=== PATIENT | male | born 1990 | race Caucasian/White ===

== ENCOUNTER 2019-04-15 03:00 | Emergency (ER) | payer BC ==
[2019-04-15] MEDS ORDERED: ZOFRAN IV ONE (03:51)
[2019-04-15] MEDS ORDERED: NACL 0.9% 1000 ML 1,000 ML IV ONE ×2 (03:51→05:07)
[2019-04-15] MEDS ORDERED: MORPHINE IV ONE (03:51)
[2019-04-15 03:52] LABS: Basophils % (Auto) 0.2 % (0.0-1.8); Eosinophils % (Auto) 0.3 % (0.0-4.3); Hematocrit 47.5 % (35.5-45.6); Hemoglobin 16.5 gm/dl (11.8-15.2); Lymphocytes # (Auto) 1.7 K/mm3 (1.2-5.4); Mean Corpuscular HGB Conc 35 % (32-34); Mean Corpuscular Volume 89 fl (84-94); Monocytes # (Auto) 0.6 K/mm3 (0.0-0.8); Monocytes % (Auto) 5.6 % (0.0-7.3); Platelet Count 272 K/mm3 (140-440); Red Blood Count 5.35 M/mm3 (3.65-5.03); Red Cell Distribution Width 12.6 % (13.2-15.2)
[2019-04-15 04:03] LABS: Alanine Aminotransferase 24 units/L (7-56); Albumin 4.9 g/dL (3.9-5); BUN/Creatinine Ratio 13; Blood Urea Nitrogen 17 mg/dL (9-20); Calcium 9.3 mg/dL (8.4-10.2); Hemolysis Index 7
[2019-04-15] MEDS ORDERED: DILAUDID ONE (04:20)
[2019-04-15] MEDS ORDERED: DILAUDID IV ONE (04:20)
--- NOTE | 2019-04-15 04:52 | Cat Scan Report ---
CT ABDOMEN AND PELVIS WITH CONTRAST HISTORY: RLQ Abdominal pain, r/o appendicitis. COMPARISON: None. TECHNIQUE: CT images of the abdomen and pelvis were obtained following administration of intravenous contrast. All CT scans at this location are performed using CT dose reduction for ALARA by means of automated exposure control. CONTRAST: 100 ml of intravenous contrast administered. FINDINGS: Lungs/bones: Lung bases are clear. There is no acute osseous abnormality or significant DJD. Abdomen/pelvis: A few scattered punctate hypodensities are present in the liver which are technicall y indeterminate but statistically likely benign in the absence of any known malignancy. The liver, sp humera, pancreas, adrenals, left kidney, and proximal GI tract appear unremarkable. There is a 3 mm stone at the right-sided UVJ with mild hydronephrosis. There is also mild generalized right renal edema. The urinary bladder and prostate appear unremarkable with no pelvic free fluid and no acute colonic a bnormality. The appendix and terminal ileum appear normal. IMPRESSION: 1. 3 mm stone at the right UVJ with mild hydronephrosis. 2. Additional incidental findings as above. Signer Name: Aguila Cedeño MD Signed: 04/15/2019 4:47 AM Workstation Name: [id number]
[2019-04-15] MEDS ORDERED: TORADOL IV ONE (05:07)
[2019-04-15] MEDS ORDERED: FLOMAX PO ONE (05:27)
--- NOTE | 2019-04-15 05:51 | Emergency Department Report ---
ED Abdominal Pain HPI - General Chief Complaint: Abdominal Pain Stated Complaint: EMESIS/ABD PAIN Time Seen by Provider: 04/15/19 03:40 Source: patient Mode of arrival: Ambulatory Limitations: No Limitations - History of Present Illness Initial Comments: Patient is a 28-year-old white male with no past medical history presents to the ED with complaint of acute onset assistance of a red lump in the tragus of the right lower quadrant area with intermittent nausea and vomiting and diarrhea for the last 1 week. Patient states that that lower quadrant pain got worse about 6 hours ago with intractable nausea and vomiting. Patient denies fever, chills, dysuria, urinary frequency and urgency, hematuria, dizziness, low back pain, penile discharge, cough, shortness of breath, chest pain, hematochezia, or heavy lifting. MD Complaint: abdominal pain (RLQ pain), flank pain (right flank), other (Nausea and vomiting; diarrhea) -: Gradual, week(s) (1) Location: RLQ, R flank Radiation: RLQ, R flank Migration to: RLQ, R flank Severity: moderate Severity scale (0 -10): 6 Quality: cramping, aching, sharp Consistency: intermittent Improves With: nothing Worsens With: nothing Associated Symptoms: denies other symptoms, nausea, vomiting, diarrhea. denies: fever, chills, constipation, dysuria, melena, hematuria, anorexia, syncope - Related Data Previous Rx's Medication Instructions Recorded Last Taken Type Ciprofloxacin HCl [Ciprofloxacin 500 mg PO Q12HR #20 tab 04/15/19 Unknown Rx TAB] Ketorolac [Toradol] 10 mg PO Q8H PRN #20 tablet 04/15/19 Unknown Rx Ondansetron [Zofran Odt] 4 mg PO Q8HR #20 tab.rapdis 04/15/19 Unknown Rx Tamsulosin [Flomax] 0.4 mg PO QDAY #7 cap 04/15/19 Unknown Rx traMADol [Ultram] 50 mg PO Q8HR PRN #15 tablet 04/15/19 Unknown Rx Allergies Allergy/AdvReac Type Severity Reaction Status Date / Time No Known Allergies Allergy Unverified 04/15/19 03:26 ED Review of Systems ROS: Stated complaint: EMESIS/ABD PAIN Other details as noted in HPI Constitutional: denies: chills, fever Eyes: denies: eye pain, eye discharge, vision change ENT: denies: ear pain, throat pain Respiratory: denies: cough, shortness of breath, wheezing Cardiovascular: denies: chest pain, palpitations Endocrine: no symptoms reported Gastrointestinal: abdominal pain (right flank pain; RLQ pain), nausea, vomiting, diarrhea Genitourinary: denies: urgency, dysuria Musculoskeletal: denies: back pain, joint swelling, arthralgia Skin: denies: rash, lesions Neurological: denies: headache, weakness, paresthesias Psychiatric: denies: anxiety, depression Hematological/Lymphatic: denies: easy bleeding, easy bruising ED Past Medical Hx - Past Medical History Previous Medical History?: No - Surgical History Past Surgical History?: No - Social History Smoking Status: Never Smoker Substance Use Type: None - Medications Home Medications: Home Medications Medication Instructions Recorded Confirmed Last Taken Type Ciprofloxacin HCl [Ciprofloxacin 500 mg PO Q12HR #20 tab 04/15/19 Unknown Rx TAB] Ketorolac [Toradol] 10 mg PO Q8H PRN #20 tablet 04/15/19 Unknown Rx Ondansetron [Zofran Odt] 4 mg PO Q8HR #20 tab.rapdis 04/15/19 Unknown Rx Tamsulosin [Flomax] 0.4 mg PO QDAY #7 cap 04/15/19 Unknown Rx traMADol [Ultram] 50 mg PO Q8HR PRN #15 tablet 04/15/19 Unknown Rx ED Physical Exam - General Limitations: No Limitations General appearance: alert, in no apparent distress - Head Head exam: Present: atraumatic, normocephalic, normal inspection - Eye Eye exam: Present: normal appearance, PERRL, EOMI. Absent: scleral icterus, conjunctival injection Pupils: Present: normal accommodation - ENT ENT exam: Present: normal exam, normal orophraynx, mucous membranes moist, TM's normal bilaterally, normal external ear exam - Neck Neck exam: Present: normal inspection, full ROM. Absent: tenderness, meningismus, lymphadenopathy, thyromegaly - Respiratory Respiratory exam: Present: normal lung sounds bilaterally. Absent: respiratory distress, wheezes, rales, rhonchi, chest wall tenderness, accessory muscle use, decreased breath sounds, prolonged expiratory - Cardiovascular Cardiovascular Exam: Present: regular rate, normal rhythm, normal heart sounds. Absent: systolic murmur, diastolic murmur, rubs, gallop - GI/Abdominal GI/Abdominal exam: Present: soft, tenderness (RLQ and right flank palpable tenderness), normal bowel sounds. Absent: guarding, rebound, hyperactive bowel sounds, hypoactive bowel sounds, mass - Rectal Rectal exam: Present: deferred - Extremities Exam Extremities exam: Present: normal inspection, full ROM, normal capillary refill - Back Exam Back exam: Present: normal inspection, full ROM. Absent: tenderness, CVA tenderness (R), CVA tenderness (L), muscle spasm, paraspinal tenderness, vertebral tenderness - Neurological Exam Neurological exam: Present: alert, oriented X3, CN II-XII intact, normal gait, reflexes normal - Psychiatric Psychiatric exam: Present: normal affect, normal mood - Skin Skin exam: Present: warm, dry, intact, normal color. Absent: rash ED Course Vital Signs 04/15/19 04/15/19 03:23 04:15 Temperature 98 F Pulse Rate 76 Respiratory 18 16 Rate Blood Pressure 134/94 O2 Sat by Pulse 100 Oximetry - Reevaluation(s) Reevaluation #1: 04/15/19 06:29 This is a 28-year-old male who presents to the ED with a right flank pain that radiates to the right lower quadrant area with nausea and vomiting. Patient is alert and oriented 3 and is in no acute distress but appears to be in pain. Lab test results were reviewed and are nonactionable. Abdomen pelvis CT scan with IV contrast shows a few scattered punctate hypodensities are present in the liver which are technically indeterminate but statistically likely benign in the absence of any known malignancy. The liver, spleen, pancreas, adrenals, left kidney, and proximal GI tract appear unremarkable. There is a 3 mm stone at the right-sided UVJ with mild hydronephrosis. There is also mild generalized right renal edema. The urinary bladder and prostate appear unremarkable with no pelvic free fluid and no acute colonic abnormality. The appendix and terminal ileum appear normal. Patient was treated for pain in the ED and also given normal saline 2 L IV bolus and on reevaluation patient's pain is well controlled with medications, patient is able to carry out normal conve rsations. Patient was discharged home on medications and advised to follow-up with his urologist in [place] where he lives or if he stays around follow-up with Dr. Grullon the urologist for further evaluation in the next 3-5 days. Patient was also advised to return to the ED immediately if symptoms get worse. ED Medical Decision Making - Lab Data Result diagrams: 04/15/19 03:29 04/15/19 03:29 - Radiology Data Radiology results: report reviewed, image reviewed Findings [facility] [address] [place] [address] Cat Scan Report Signed Patient: FALLON JACKSON MR#: [id number] : 1990 Acct:[id number] Age/Sex: 28 / M ADM Date: 04/15/19 Loc: ED Attending Dr: Ordering Physician: HALLIE GASCA Date of Service: 04/15/19 Procedure(s): CT abdomen pelvis w con Accession Number(s): [id number] cc: HALLIE GASCA CT ABDOMEN AND PELVIS WITH CONTRAST HISTORY: RLQ Abdominal pain, r/o appendicitis. COMPARISON: None. TECHNIQUE: CT images of the abdomen and pelvis were obtained following administration of intravenous contrast. All CT scans at this location are performed using CT dose reduction for ALARA by means of automated exposure control. CONTRAST: 100 ml of intravenous contrast administered. FINDINGS: Lungs/bones: Lung bases are clear. There is no acute osseous abnormality or significant DJD. Abdomen/pelvis: A few scattered punctate hypodensities are present in the liver which are technically indeterminate but statistically likely benign in the absence of any known malignancy. The liver, spleen, pancreas, adrenals, left kidney, and proximal GI tract appear unremarkable. There is a 3 mm stone at the right-sided UVJ with mild hydronephrosis. There is also mild generalized right renal edema. The urinary bladder and prostate appear unremarkable with no pelvic free fluid and no acute colonic abnormality. The appendix and terminal ileum appear normal. IMPRESSION: 1. 3 mm stone at the right UVJ with mild hydronephrosis. 2. Additional incidental findings as above. Signer Name: Aguila Cedeño MD Signed: 04/15/2019 4:47 AM Workstation Name: [id number] Transcribed By: JACQUE Dictated By: Aguila Cedeño MD Electronically Authenticated By: Aguila Cedeño MD Signed Date/Time: 04/15/19 0447 - Medical Decision Making This is a 28-year-old male who presents to the ED with a right flank pain that radiates to the right lower quadrant area with nausea and vomiting. Patient is alert and oriented 3 and is in no acute distress but appears to be in pain. Lab test results were reviewed and are nonactionable. Abdomen pelvis CT scan with IV contrast shows a few scattered punctate hypodensities are present in the liver which are technically indeterminate but statistically likely benign in the absence of any known malignancy. The liver, spleen, pancreas, adrenals, left kidney, and proximal GI tract appear unremarkable. There is a 3 mm stone at the right-sided UVJ with mild hydronephrosis. There is also mild generalized right renal edema. The urinary bladder and prostate appear unremarkable with no pelvic free fluid and no acute colonic abnormality. The appendix and terminal ileum appear normal. Patient was treated for pain in the ED and also given normal saline 2 L IV bolus and on reevaluation patient's pain is well controlled with medications, patient is able to carry out normal conversations. Patient was discharged home on medications and advised to follow-up with his urologist in [place] where he lives or if he stays around follow-up with Dr. Grullon the urologist for further evaluation in the next 3-5 days. Patient was also advised to return to the ED immediately if symptoms get worse. - Differential Diagnosis Right flank pain; appendicitis; Kidney stones; acute UTI Critical care attestation.: If time is entered above; I have spent that time in minutes in the direct care of this critically ill patient, excluding procedure time. ED Disposition Clinical Impression: Acute right flank pain, Acute abdominal pain in right lower quadrant, Nausea and vomiting in adult, Kidney stone on right side Disposition: - TO HOME OR SELFCARE Is pt being admited?: No Does the pt Need Aspirin: No Condition: Stable Instructions: Abdominal Pain in Children (ED), Kidney Stones (ED), Acute Nausea and Vomiting (ED), Abdominal Pain (ED), Flank Pain (ED) Additional Instructions: Take medications with food, drink plenty of fluids and follow-up with your urologist in 3-5 days for reevaluation. Alternatively, if he was staying locally, follow-up with doctor, and the radiologist and 5 days for reevaluation. Otherwise return to the ED immediately if symptoms get worse. Prescriptions: Ciprofloxacin HCl [Ciprofloxacin TAB] 500 mg PO Q12HR #20 tab Tamsulosin [Flomax] 0.4 mg PO QDAY #7 cap Ketorolac [Toradol] 10 mg PO Q8H PRN #20 tablet PRN Reason: Pain traMADol [Ultram] 50 mg PO Q8HR PRN #15 tablet PRN Reason: Pain Ondansetron [Zofran Odt] 4 mg PO Q8HR #20 tab.rapdis Referrals: TRAV GRULLON MD [Staff Physician] - 3-5 Days Forms: Work/School Release Form(ED) Time of Disposition: 05:55 Print Language: CHINESE
[2019-04-15 06:16] LABS: Bilirubin,Urine NEG (Negative); Blood,Urine LG (Negative); Color,Urine Yellow (Yellow); Mucus,Urine FEW /HPF; Protein,Urine <15 mg/dL mg/dL (Negative); Urobilinogen,Urine < 2.0 mg/dL (<2.0)
[2019-04-15 06:57] VITALS: BP 121/80
== END 2019-04-15 06:56 | disposition home or self-care (01) ==
LOC: ED 03:00
DX: N20.0 Calculus of kidney (principal); R11.2 Nausea with vomiting, unspecified; Z79.899 Other long term (current) drug therapy
CPT/HCPCS: 36415; 74177; 80053; 81001; 83690; 85025; 96361; 96374; 96375; 99284; J1170; J1885; J2270; J2405; J7030; Q9967